=== PATIENT | male | born 1970 | race African-American/Black ===

== ENCOUNTER 2024-06-18 13:16 | Outpatient (AMB) | payer OTHER, SELFPAY ==
--- NOTE | 2024-06-18 13:17 | MHC.PC.OV ---
Vital Signs 06/18/24 13:18 Height 6 ft 1.62 in Weight 205 lb BMI 26.6 BP 134/80 Blood Pressure Location Lt brachial Position Sitting Pulse 94 Pulse Source Pulse Oximeter Pulse Oximetry (%) 97 Oxygen Delivery Method Room Air Intake Visit Reasons: establish care/ PE Allergies No Known Allergies Allergy (Verified 06/18/24 13:34) Medication List - Last Reconciled 06/18/24 by Fanny Bro PA-C No Known Home Meds Tobacco use date assessed: 06/18/24 Dental Screening Dental Screen Date: 06/18/24 Did you have a dental visit in the last 12 months?: No Did you have a dental problem in the last 6 months where you did not have access to dental care?: No HPI establish care/ PE HPI Details 53-year-old male coming to the office for the 1st time. Patient is not known to [employer]. 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 He has not been seen as an adult by a primary care in the past and is not up-to-date on any routine screening or vaccinations. Patient states he has low back pain that began 4 months ago without inciting injury. The pain is midline in the lumbar spine and occasionally will radiate down the left leg without numbness or tingling. He has not had any imaging and he uses Tylenol as needed which sometimes works with the pain. [facility] Family History (Updated 06/18/24 @ 13:26 by LISA Fernandez) Father No problems noted. Mother No problems noted. Social History Housing: House Patient Tobacco Use Status: Never used Tobacco service: No Current occupational status: employed Cognitive needs: No Hearing needs: No Questionnaire PHQ-9 Over the last 2 weeks, how often have you been bothered by any of the following problems? 1. Little interest or pleasure in doing things: not at all 2. Feeling down, depressed, or hopeless: more than half the days 3. Trouble falling or staying asleep, or sleeping too much: not at all 4. Feeling tired or having little energy: nearly every day 5. Poor appetite or overeating: more than half the days 6. Feeling bad about yourself - or that you are a failure or have let yourself or your family down: several days 7. Trouble concentrating on things, such as reading the newspaper or watching television: not at all 8. Moving or speaking so slowly that other people could have noticed. Or the opposite - being so fidgety or restless that you have been moving around a lot more than usual: not at all 9. Thoughts that you would be better off or of hurting yourself in some way: not at all Total score: 8 Depression Screening Interpretation: Negative Depression Screening Done: Yes 97779 - PHQ-9 Billing: Yes Source: Developed by Drs. Cristofer Horn, Roro Chen, Elkin Leone and colleagues, with an educational emma from [employer] Thrive Questionnaire Date Thrive assessed: 06/18/24 I am a: Patient What is your living situation today?: I have a steady place to live Within the past 12 months, did the food you bought not last and you didn't have the money to get more?: Never true Within the past 12 months, did you worry whether your food would run out before you got money to buy more?: Never true Do you have trouble paying for medicines?: No Do you have trouble getting transportation to medical appointments?: No Do you have trouble paying your heating and electricity bill?: No Do you have trouble taking care of your child, family member or friend?: No Do you have trouble with day-to-day activities such as bathing, preparing meals, shopping, managing finances, etc.?: No Are you currently unemployed and looking for a job?: No Are you interested in more education?: No Please select the resources that you would like help with: None Currently or been in a relationship where the following occur: No concerns reported THRIVE Score: 0 AUDIT C Alcohol Use Questionnaire (AUDIT-C) 1. How often do you have a drink containing alcohol?: Never 3. How often do you have six or more drinks on one occasion?: Never Total Score: 0 KASSANDRA-7 AMB Questionnaire KASSANDRA-7 Date KASSANDRA - 7 assessed: 06/18/24 Feeling nervous, anxious, or on edge: 0 = Not at all Not being able to stop or control worryin = Not at all Worrying too much about different things: 0 = Not at all Trouble relaxin = Not at all Being so restless that it is hard to sit still: 0 = Not at all Becoming easily annoyed or irritable: 0 = Not at all Feeling afraid as if something awful might happen: 0 = Not at all Total KASSANDRA-7 score (0-4 normal; 5-9 mild; 10-14 moderate; 15-21 severe): 0 Source: Developed by Drs. Cristofer Horn, Roro Chen, Elkin Leone and colleagues, with an educational emma from [employer] KASSANDRA-7 Assessment Billing KASSANDRA-7 Assessment Tool: KASSANDRA-7 Assessment 19613 Review of Systems Const Denies body aches, Denies fatigue, Denies fever(s), Denies frequent falls, Denies headache(s) and Denies weakness Eyes Reports no additional complaints and Denies change in vision ENT Denies dysphagia, Denies dizziness, Denies facial pain, Denies headache(s), Denies nasal congestion and Denies odynophagia Card Denies chest pain, Denies syncope, Denies irregular heart rhythm, Denies leg edema, Denies lightheadedness and Denies dyspnea Resp Denies cough and Denies dyspnea GI Denies constipation, Denies dysphagia, Denies dyspepsia, Denies diarrhea, Denies nausea, Denies odynophagia and Denies vomiting Denies dysuria, Denies urinary frequency, Denies urinary hesitancy and Denies urinary urgency Musc Reports back pain and Denies myalgias Skin/Breast Reports system reviewed and no additional complaints, except as documented Neuro Denies dizziness, Denies syncope, Denies frequent falls, Denies headache(s) and Denies weakness Psych Reports no additional complaints Endo Denies fatigue Physical exam (Primary Care) Vital Signs: Last Vital Signs Pulse 94 06/18/24 13:18 BP 134/80 06/18/24 13:18 Pulse Ox 97 06/18/24 13:18 Oxygen Delivery Method Room Air 06/18/24 13:18 BMI result Body Mass Index 26.6 Tobacco/Smoking Status: Tobacco use Status Tobacco use date assessed 06/18/24 06/18/24 13:28 Patient Tobacco Use Status Never used Tobacco 06/18/24 13:28 PHQ-9: PHQ-9 Score PHQ-9: Total score 8 06/18/24 13:33 Depression Screening Interpretation: Negative Thrive Assessment: Date of Thrive Assessment Date Thrive assessed 06/18/24 06/18/24 13:28 Currently or been in a relationship where the following occur: No concerns reported Const General: cooperative, healthy appearing, comfortable and no acute distress Orientation/consciousness: patient oriented x3 HENMT Head: Yes normocephalic Ears: hearing grossly normal bilaterally, external ears normal, TM's normal bilaterally and EAC's normal General nose exam: Normal external nose present Face and sinus: Yes normal facial exam and Yes sinuses nontender Mouth: Normal oral and palatal mucosa present and tongue normal Throat: Yes posterior oropharynx normal Eyes General: appearance normal, both eyes and all related structures Conjunctivae: conjunctivae normal Pupils: Equal, round and reactive pupils present EOM: EOMs intact bilaterally and No Nystagmus present Neck Neck: Yes normal visual inspection, Yes full ROM and Yes no lymphadenopathy Chest Chest palpation & inspection: normal inspection of the chest Resp Effort & Inspection: normal respiratory effort Auscultation: clear to auscultation bilaterally, no crackles, no rales, no rhonchi, no wheezes and breath sounds present Cardio Rate: regular rate Rhythm: regular rhythm Peripheral pulses: radial pulses present and dorsalis pedis present GI Inspection: Yes normal to inspection and No Abdominal wall edema Palpation (GI): Soft to palpation, not firm and nontender Auscultation: normal bowel sounds Rectal Exam - Male: Yes deferred General: Yes no CVA tenderness Back/Spine/Pelvis Other: Tenderness to palpation of the lumbar spine without paraspinal muscle tenderness. Negative straight leg raise bilaterally Back: no CVA tenderness Skin General skin exam: no rashes or lesions noted Neuro General: patient oriented x3 Cranial nerves: Yes Equal, round and reactive pupils present, Yes Midline tongue present, Yes Ability to bilaterally elevate shoulders present and No Nystagmus present Gait exam (Neuro): Normal gait present Extrem General: Yes normal to inspection, Yes full ROM, No no pedal edema and No edema Psych Speech and movement: Normal speech and movement present Affect: normal affect Insight: Good insight present (Psych) Judgement: Good judgement present (Psych) Coding Level of Care Code New Pt Prev Care 40-64y(69545) Diagnoses Low back pain M54.50 Annual physical exam Z00.00 Additional Codes KASSANDRA-7 Assessment Billing - KASSANDRA-7 Assessment Tool: KASSANDRA-7 Assessment 71497 ([id number]) Assessment & Plan Assessment & Plan (1) Low back pain: Code(s): M54.50 - Low back pain, unspecified Category: Medical Plan: Patient complaining of lumbar spine pain that radiates to the left leg occasionally without numbness or tingling. Negative straight leg raise test on exam today but does have tenderness to palpation of the lumbar spine. Lumbar spine x-ray ordered. Declines physical therapy at this time. May use Tylenol and ibuprofen as needed for pain. (2) Annual physical exam: Code(s): Z00.00 - Encounter for general adult medical examination without abnormal findings Category: Medical Plan: Patient has not been seen by primary care and is not up-to-date on routine screenings and vaccinations for his age. Referral was placed to GI for routine screening colonoscopies and updated blood work was ordered. Discussed vaccination is patient is unsure of his vaccination records and will let us know about the tetanus vaccine. Discussed if patient would like flu, COVID, tetanus we could accommodate him in his office or he could go to the pharmacy for COVID and flu. Follow up on a yearly basis or sooner pending blood work/x-ray results or if new problems arise Plan This note was constructed using voice recognition software. While every effort has been made to ensure accuracy and retail interior designer, still areas may have been included sometimes these areas may affect the content or meeting of the given symptoms. Total time spent caring for the patient today was 30 minutes. This includes time spent before the visit reviewing the chart, time spent during the visit, and time spent after the visit and documentation. Orders: Orders Free T4 (Free Thyroxine) Today Z00.00 - Encounter for general adult medical examination without abnormal findings TSH reflex Free T4 Today Z00.00 - Encounter for general adult medical examination without abnormal findings Hemoglobin A1c Today Z00.00 - Encounter for general adult medical examination without abnormal findings Vitamin B12 and Folate Today Z00.00 - Encounter for general adult medical examination without abnormal findings XR lumbar spine 2-3V Today M54.50 - Low back pain, unspecified Comprehensive Met. Panel Today Z00.00 - Encounter for general adult medical examination without abnormal findings Complete Blood Count Auto Diff Today Z00.00 - Encounter for general adult medical examination without abnormal findings Lipid Panel Today Z00.00 - Encounter for general adult medical examination without abnormal findings Vitamin D 25-OH (D2 and D3) Today Z00.00 - Encounter for general adult medical examination without abnormal findings Referrals Gastroenterology Referral Z12.11 - Encounter for screening for malignant neoplasm of colon
[2024-06-18 13:18] VITALS: BP 134/80; PULSE 94; O2SAT 97; BMI 26.6
== END 2024-06-18 13:50 | disposition home or self-care (01) ==
DX: M54.50 Low back pain, unspecified (principal); Z00.00 Encounter for general adult medical examination without abnormal findings

== ENCOUNTER 2024-09-18 09:04 | Outpatient (AMB) | payer OTHER, SELFPAY ==
--- NOTE | 2024-09-18 09:10 | MHC.PC.OV ---
Vital Signs 09/18/24 09:12 09/18/24 09:31 Height 6 ft 1.62 in Weight 207 lb 2 oz BMI 26.9 BP 140/90 H 142/88 H Blood Pressure Location Lt brachial Lt brachial Position Sitting Sitting Pulse 99 Pulse Source Pulse Oximeter Temp 97.5 F Temp Source Skin Pulse Oximetry (%) 99 Oxygen Delivery Method Room Air Intake Visit Reasons: 3 Month f/u Intake Note: Patient is here to follow up on lower back pain. Print Graphic Designer Required: No Mechanical Equipment Test Engineer: Not Required per policy Accompanied by: Self / Same As Patient Allergies No Known Allergies Allergy (Verified 09/18/24 09:12) Medication List - Last Reconciled 09/18/24 by Fanny Bro PA-C No Known Home Meds Tobacco use date assessed: 09/18/24 Dental Screening Dental Screen Date: 09/18/24 Did you have a dental visit in the last 12 months?: No Did you have a dental problem in the last 6 months where you did not have access to dental care?: No Was dental information given to patient?: No HPI 3 Month f/u HPI Details 53-year-old male with past medical history of diabetes mellitus, elevated LFTs last seen 06/2024 coming in for follow up. Patient tells us he is feeling generally well and has no acute concerns today. He states his diet has lots of rice based dishes. He exercises regularly. [facility] Surgical History No pertinent past surgical history Family History Father No problems noted. Mother No problems noted. Social History Housing: House Alcohol intake: never Patient Tobacco Use Status: Never used Tobacco e-Cigarette/Vaping Use: Never Used Second Hand Smoke Exposure: No service: No Current occupational status: employed Cognitive needs: No Hearing needs: No Questionnaire PHQ-9 Over the last 2 weeks, how often have you been bothered by any of the following problems? 1. Little interest or pleasure in doing things: not at all 2. Feeling down, depressed, or hopeless: not at all 3. Trouble falling or staying asleep, or sleeping too much: not at all 4. Feeling tired or having little energy: not at all 5. Poor appetite or overeating: not at all 6. Feeling bad about yourself - or that you are a failure or have let yourself or your family down: not at all 7. Trouble concentrating on things, such as reading the newspaper or watching television: not at all 8. Moving or speaking so slowly that other people could have noticed. Or the opposite - being so fidgety or restless that you have been moving around a lot more than usual: not at all 9. Thoughts that you would be better off or of hurting yourself in some way: not at all Total score: 0 Depression Screening Interpretation: Negative Depression Screening Done: Yes Source: Developed by Drs. Cristofer Horn, Roro Chen, Elkin Leone and colleagues, with an educational emam from [employer]. Thrive Questionnaire Date Thrive assessed: 09/18/24 I am a: Patient What is your living situation today?: I have a steady place to live Within the past 12 months, did the food you bought not last and you didn't have the money to get more?: I choose not to answer this question Within the past 12 months, did you worry whether your food would run out before you got money to buy more?: Never true Do you have trouble paying for medicines?: I choose not to answer this question Do you have trouble getting transportation to medical appointments?: No Do you have trouble paying your heating and electricity bill?: No Do you have trouble taking care of your child, family member or friend?: No Do you have trouble with day-to-day activities such as bathing, preparing meals, shopping, managing finances, etc.?: No Are you currently unemployed and looking for a job?: No Are you interested in more education?: Yes Please select the resources that you would like help with: Job search/training Currently or been in a relationship where the following occur: I choose not to answer THRIVE Score: 0 AUDIT C Alcohol Use Questionnaire (AUDIT-C) 1. How often do you have a drink containing alcohol?: Monthly or less 2. How many drinks containing alcohol do you have on a typical day when you are drinking?: 1 or 2 3. How often do you have six or more drinks on one occasion?: Monthly Total Score: 3 KASSANDRA-7 AMB Questionnaire KASSANDRA-7 Date KASSANDRA - 7 assessed: 09/18/24 Feeling nervous, anxious, or on edge: 0 = Not at all Not being able to stop or control worryin = Not at all Worrying too much about different things: 0 = Not at all Trouble relaxin = Not at all Being so restless that it is hard to sit still: 0 = Not at all Becoming easily annoyed or irritable: 0 = Not at all Feeling afraid as if something awful might happen: 0 = Not at all Total KASSANDRA-7 score (0-4 normal; 5-9 mild; 10-14 moderate; 15-21 severe): 0 Source: Developed by Drs. Cristofer Horn, Roro Chen, Elkin Leone and colleagues, with an educational emma from [employer]. Review of Systems Const Denies body aches, Denies chills, Denies fever(s), Denies headache(s) and Denies poor appetite Eyes Reports no additional complaints ENT Denies dysphagia, Denies dizziness, Denies headache(s) and Denies odynophagia Card Denies chest pain, Denies syncope, Denies edema, Denies irregular heart rhythm, Denies lightheadedness and Denies dyspnea Resp Denies cough and Denies dyspnea GI Denies abdominal pain, Denies constipation, Denies dysphagia, Denies diarrhea, Denies nausea, Denies odynophagia and Denies vomiting Reports no additional complaints Musc Reports no additional complaints and Denies abnormal gait Skin/Breast Reports system reviewed and no additional complaints, except as documented Neuro Denies abnormal gait, Denies dizziness, Denies syncope and Denies headache(s) Psych Reports no additional complaints Physical exam (Primary Care) Vital Signs: Last Vital Signs Temp 97.5 F 09/18/24 09:12 Pulse 99 09/18/24 09:12 BP 142/88 H 09/18/24 09:31 Pulse Ox 99 09/18/24 09:12 Oxygen Delivery Method Room Air 09/18/24 09:12 BMI result Body Mass Index 26.9 Tobacco/Smoking Status: Tobacco use Status Tobacco use date assessed 09/18/24 09/18/24 09:17 Patient Tobacco Use Status Never used Tobacco 09/18/24 09:12 e-Cigarette/Vaping Use Never Used 09/18/24 09:17 PHQ-9: PHQ-9 Score PHQ-9: Total score 0 09/18/24 09:29 Depression Screening Interpretation: Negative Thrive Assessment: Date of Thrive Assessment Date Thrive assessed 09/18/24 09/18/24 09:12 Currently or been in a relationship where the following occur: I choose not to answer Const General: cooperative, healthy appearing, comfortable and no acute distress Orientation/consciousness: patient oriented x3 HENMT Head: Yes normocephalic Ears: hearing grossly normal bilaterally General nose exam: Normal external nose present Eyes General: appearance normal, both eyes and all related structures Conjunctivae: conjunctivae normal Neck Neck: Yes full ROM and Yes no lymphadenopathy Resp Effort & Inspection: normal respiratory effort Auscultation: clear to auscultation bilaterally, no crackles, no rales, no rhonchi and no wheezes Cardio Rate: regular rate Rhythm: regular rhythm Skin General skin exam: no rashes or lesions noted Neuro General: patient oriented x3 Gait exam (Neuro): Normal gait present Extrem General: Yes normal to inspection, Yes full ROM and No edema Psych Affect: normal affect Attitude: cooperative Insight: Good insight present (Psych) Judgement: Good judgement present (Psych) Results AMB Hemoglobin A1c AMB Hemoglobin A1c 6.5 % Last Edit by LISA Mckinnon on 09/18/24 09:37 Coding Level of Care Code Est Pt Level 4 (40103) Diagnoses Elevated LFTs R79.89 Type 2 diabetes mellitus with other specified complication, without long-term current use of insulin E11.69 Diabetes mellitus type: type 2 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 Ordered for repeat lab work along with hepatitis panel. If continues to be elevated we will plan to order abdominal ultrasound. Eyes my eye (2) Diabetes mellitus: Code(s): E11.9 - Type 2 diabetes mellitus without complications Category: Medical Qualifiers: Diabetes mellitus type: type 2 Diabetes mellitus chcf insulin use: without chcf use Diabetes mellitus complication status: with other specified complication Qualified Code(s): E11.69 - Type 2 diabetes mellitus with other specified complication Plan: Decrease the amount of carbohydrates such as pasta, bread, rice, and potatoes and limit the amount of sweets. Although fruits are generally healthy they should be eaten in moderation as they are still high in sugar. Hemoglobin A1c goal of less than 7%. Patient has new diagnosis of diabetes mellitus with A1c of 6.5% today in the office. Patient would like to try diet and lifestyle modification before starting medical management. We will follow up in 3 months for repeat A1c advised patient if A1c remains elevated we will require medical management. (3) Low back pain: Code(s): M54.50 - Low back pain, unspecified Category: Medical Plan: Patient states his back pain has been improving. He notices his pain is worse after working long shifts standing on his feet for long periods of time. Advised patient to trial insoles or other supportive shoes and continue to use Tylenol and ibuprofen as needed for pain management (4) Elevated blood pressure reading without diagnosis of hypertension: Code(s): R03.0 - Elevated blood-pressure reading, without diagnosis of hypertension Category: Medical Plan: Blood pressure elevated today on exam 142/88 blood pressure in the past has been normal. Patient tells us today he has been rushing around all day which is why his blood pressure is elevated. Advised patient to take blood pressure at home and follow up at next visit. Avoid salt intake and encourage healthy diet and regular exercise. Plan This note was constructed using voice recognition software. While every effort has been made to ensure accuracy and assistant to the director, still areas may have been included sometimes these areas may affect the content or meeting of the given symptoms. Total time spent caring for the patient today was 20 minutes. This includes time spent before the visit reviewing the chart, time spent during the visit, and time spent after the visit and documentation. Orders: Orders Liver Panel Today R79.89 - Other specified abnormal findings of blood chemistry Hepatitis B,C Profile Today R79.89 - Other specified abnormal findings of blood chemistry AMB Hemoglobin A1c Today E11.9 - Type 2 diabetes mellitus without complications
[2024-09-18 09:12] VITALS: BP 140/90; PULSE 99; TEMP 36.4; O2SAT 99; BMI 26.9
[2024-09-18 09:31] VITALS: BP 142/88
== END 2024-09-18 09:41 | disposition home or self-care (01) ==
DX: R79.89 Other specified abnormal findings of blood chemistry (principal); E11.69 Type 2 diabetes mellitus with other specified complication; M54.50 Low back pain, unspecified; R03.0 Elevated blood-pressure reading, without diagnosis of hypertension; E11.9 Type 2 diabetes mellitus without complications

== ENCOUNTER → 2024-09-18 09:04 | Outpatient (BNVA) | payer OTHER, SELFPAY | DX: M54.50 Low back pain, unspecified (principal); R79.89 Other specified abnormal findings of blood chemistry; E11.69 Type 2 diabetes mellitus with other specified complication; R03.0 Elevated blood-pressure reading, without diagnosis of hypertension | CPT/HCPCS: 83036; 99212 ==

== ENCOUNTER 2024-12-17 09:25 | Outpatient (AMB) | payer OTHER, SELFPAY ==
--- NOTE | 2024-12-17 09:32 | MHC.PC.OV ---
Vital Signs 12/17/24 09:33 12/17/24 10:02 Height 6 ft 1.2 in Weight 207 lb BMI 27.2 BP 140/90 H 134/88 Blood Pressure Location Lt brachial Lt brachial Position Sitting Sitting Pulse 77 Pulse Source Pulse Oximeter Temp 97.5 F Temp Source Temporal Artery Scan Pulse Oximetry (%) 97 Oxygen Delivery Method Room Air Intake Visit Reasons: f/u DM and BP Intake Note: Patient is here to follow up on DM, BP. 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 At his last visit A1c was 6.5% agreed to work on dietary and lifestyle modification. Patient tells us today he has been feeling generally well. He does work over nights 6 days a week and is having difficulty with his sleep schedule. As a result he feels excessive fatigue throughout the day. He typically will sleep anywhere between 3-5 hours per day. [facility] Surgical History No pertinent past surgical history Family History Father No problems noted. Mother No problems noted. Social History Housing: House Alcohol intake: never Patient Tobacco Use Status: Never used Tobacco e-Cigarette/Vaping Use: Never Used Second Hand Smoke Exposure: No service: No Current occupational status: employed Cognitive needs: No Hearing needs: No Questionnaire Thrive Questionnaire Date Thrive assessed: 09/18/24 KASSANDRA-7 AMB Questionnaire KASSANDRA-7 Date KASSANDRA - 7 assessed: 09/18/24 Source: Developed by Drs. Cristofer Horn, Roro Chen, Elkin Leone and colleagues, with an educational emma from [employer]. Review of Systems Const Denies body aches, Denies chills, Denies fever(s), Denies headache(s) and Denies poor appetite Eyes Reports no additional complaints ENT Denies dysphagia, Denies dizziness, Denies headache(s) and Denies odynophagia Card Denies chest pain, Denies syncope, Denies edema, Denies irregular heart rhythm, Denies lightheadedness and Denies dyspnea Resp Denies cough and Denies dyspnea GI Denies abdominal pain, Denies constipation, Denies dysphagia, Denies diarrhea, Denies nausea, Denies odynophagia and Denies vomiting Reports no additional complaints Musc Reports no additional complaints and Denies abnormal gait Skin/Breast Reports system reviewed and no additional complaints, except as documented Neuro Denies abnormal gait, Denies dizziness, Denies syncope and Denies headache(s) Psych Reports no additional complaints Physical exam (Primary Care) Vital Signs: Last Vital Signs Temp 97.5 F 12/17/24 09:33 Pulse 77 12/17/24 09:33 BP 140/90 H 12/17/24 09:33 Pulse Ox 97 12/17/24 09:33 Oxygen Delivery Method Room Air 12/17/24 09:33 BMI result Body Mass Index 27.2 Tobacco/Smoking Status: Tobacco use Status Tobacco use date assessed 12/17/24 12/17/24 09:38 Patient Tobacco Use Status Never used Tobacco 12/17/24 09:38 e-Cigarette/Vaping Use Never Used 12/17/24 09:38 Thrive Assessment: Date of Thrive Assessment Date Thrive assessed 09/18/24 12/17/24 09:38 Const General: cooperative, healthy appearing, comfortable and no acute distress Orientation/consciousness: patient oriented x3 [facility] Head: Yes normocephalic Ears: hearing grossly normal bilaterally General nose exam: Normal external nose present Eyes General: appearance normal, both eyes and all related structures Conjunctivae: conjunctivae normal Neck Neck: Yes full ROM and Yes no lymphadenopathy Resp Effort & Inspection: normal respiratory effort Auscultation: clear to auscultation bilaterally, no crackles, no rales, no rhonchi and no wheezes Cardio Rate: regular rate Rhythm: regular rhythm Skin General skin exam: no rashes or lesions noted Neuro General: patient oriented x3 Gait exam (Neuro): Normal gait present Extrem General: Yes normal to inspection, Yes full ROM and No edema Psych Affect: normal affect Attitude: cooperative Insight: Good insight present (Psych) Judgement: Good judgement present (Psych) Results AMB Hemoglobin A1c AMB Hemoglobin A1c 6.0 % Last Edit by LISA Mckinnon on 12/17/24 09:45 Coding Level of Care Code Est Pt Level 3 (58784) Diagnoses Elevated blood pressure reading without diagnosis of hypertension R03.0 Type 2 diabetes mellitus with other specified complication, without long-term current use of insulin E11.69 Diabetes mellitus type: type 2 Diabetes mellitus jail insulin use: without manager placement use Diabetes mellitus complication status: with other specified complication Insomnia G47.00 Assessment & Plan Assessment & Plan (1) Elevated blood pressure reading without diagnosis of hypertension: Code(s): R03.0 - Elevated blood-pressure reading, without diagnosis of hypertension Category: Medical Plan: Blood pressure mildly elevated on exam again today. Patient does endorse high salt diet. Recommend following up with nurse navigation in 3 weeks for blood pressure check and education and follow up with me in 3 months. If blood pressure remains elevated discussed the need for medication management. Avoid salt intake and encourage healthy diet and regular exercise. (2) Diabetes mellitus: Code(s): E11.9 - Type 2 diabetes mellitus without complications Category: Medical Qualifiers: Diabetes mellitus type: type 2 Diabetes mellitus manager placement insulin use: without jail use Diabetes mellitus complication status: with other specified complication Qualified Code(s): E11.69 - Type 2 diabetes mellitus with other specified complication Plan: Decrease the amount of carbohydrates such as pasta, bread, rice, and potatoes and limit the amount of sweets. Although fruits are generally healthy they should be eaten in moderation as they are still high in sugar. Hemoglobin A1c goal of less than 7%. A1c 6.0% today at this time no need for medical management as patient has been able to manage the diabetes with dietary intervention. (3) Insomnia: Code(s): G47.00 - Insomnia, unspecified Category: Medical Plan: Discussed with patient today sleep hygiene and gave recommendations as far as lifestyle interventions. May use [id number] melatonin and/or magnesium for sleep as well. Discussed with the patient the hypersomnolence is likely due to his lack of sleep. He denies any shortness of breath, choking episodes or snoring. Can consider sleep study Plan This note was constructed using voice recognition software. While every effort has been made to ensure accuracy and cage supervisor, still areas may have been included sometimes these areas may affect the content or meeting of the given symptoms. Total time spent caring for the patient today was 20 minutes. This includes time spent before the visit reviewing the chart, time spent during the visit, and time spent after the visit and documentation. Orders: Orders AMB Hemoglobin A1c Today E11.69 - Type 2 diabetes mellitus with other specified complication
[2024-12-17 09:33] VITALS: BP 140/90; PULSE 77; TEMP 36.4; O2SAT 97; BMI 27.2
[2024-12-17 10:02] VITALS: BP 134/88
--- OUTSIDE RECORDS SUMMARY | 2024-12-17 10:28 | XMS_ITS ---
Author Organization [facility] Address [address], [place] [id number] Care Team Providers Care Locksmith Helper Name Role Phone No, PCP [facility], Nursing Unavailable [phone] REASON FOR VISIT phone: intake Encounters Encounter Location Date Provider Diagnosis [facility] [address], [place] [id number] 06/14/2024 Nursing [facility] Plan Of Treatment No Information Progress Notes * MARSHA TOVARDOB:[birth year] (54 yo M)Acc No.[id number]:06/14/2024 Progress Notes Patient:?MARSHA TOVAR Provider:?Provider [facility] :1970???Age:53 Y???Sex:Male Jose e:06/14/2024 Address:[address] [place] [address] [id number] Pcp:PCP No Subjective: * Chief Complaints: * ???1. Phone: intake. * Medical History:? Objective: * Vitals:? Assessment: Plan: * Treatment: * Images: Billing Information: * Visit Code:? * Procedure Codes:? * Electronic signature of [facility] on 12/17/2024 at 10:28 AM EDT Sign off status: Pending * Provider:?Provider [facility] Date:?06/14/2024 Generated for Roni colón/[place]/eTransmitting on:?12/17/2024 10:28 AM EDT
--- OUTSIDE RECORDS SUMMARY | 2024-12-17 10:28 | XMS_ITS | Patient Health Record ---
Author Organization [facility] Address [address], [place] [id number] Care Team Providers Care Shot Lighter Name Role Phone No, PCP [facility], Nursing Unavailable [phone] Reason For Referral No Information Plan Of Treatment No Information Insurance Providers Payer Name Payer Address Payer Phone Subscriber Number Group Number Insured Name Patient Relationship to Insured Coverage Start Date Coverage End Date [place] [address] [place], [place] [id number] MARSHA HOLMAN Self - patient is the insured 4
== END 2024-12-17 10:08 | disposition home or self-care (01) ==
DX: R03.0 Elevated blood-pressure reading, without diagnosis of hypertension (principal); E11.69 Type 2 diabetes mellitus with other specified complication; G47.00 Insomnia, unspecified

== ENCOUNTER → 2024-12-17 09:25 | Outpatient (BNVA) | payer OTHER, SELFPAY | DX: R03.0 Elevated blood-pressure reading, without diagnosis of hypertension (principal); E11.69 Type 2 diabetes mellitus with other specified complication; G47.00 Insomnia, unspecified | CPT/HCPCS: 83036; 99212 ==

== ENCOUNTER 2025-03-25 08:49 | Outpatient (AMB) | payer OTHER, SELFPAY ==
--- OUTSIDE RECORDS SUMMARY | 2024-03-29 09:00 | XMS_ITS ---
Author Organization [facility] Address [address] [place] [id number] Care Team Providers Care Tool Chaser Name Role Phone NO, PCP Primary Care Provider [facility], Nursing Unavailable [phone] REASON FOR VISIT phone: Intake Encounters Encounter Location Date Provider Diagnosis [address] [id number] 03/29/2024 Nursing [facility] Plan Of Treatment No Information Progress Notes * MARSHA TOVARDOB:[birth year] (54 yo M)Acc No.[id number]:03/29/2024 Progress Notes Patient: MARSHA DE JESUS Provider: Adelso levy [facility] :1970 A ge:53 Y S ex:Male Date:03/29/2024 Address:[address] [place], [place] [phone] Pcp:PCP NO Subjective: * Chief Complaints: * 1 . phone: Intake. * Medical History: Objective: * Vitals: Assessment: Plan: * Treatment: * Images: Billing Information: * Visit Code: * Procedure Codes: * Electronic signature of Huber [facility] on 03/25/2025 at 09:09 AM EDT Sign off status: Pending * Provider: Adelso levy [facility] Date: 03/29/2024 Generated for Roni colón/Milton/Spencer on: 03/25/2025 09:09 AM EDT
--- NOTE | 2025-03-25 08:53 | MHC.PC.OV ---
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 Accompanied by: Self / Same As Patient Allergies No Known Allergies Allergy (Verified 03/25/25 09:00) Medication List - Last Reconciled 03/25/25 by Fanny Bro PA-C No Known Home Meds Tobacco use date assessed: 03/25/25 Dental Screening Dental Screen Date: 03/25/25 Did you have a dental visit in the last 12 months?: No Did you have a dental problem in the last 6 months where you did not have access to dental care?: No Was dental information given to patient?: No HPI f/u DM and HTN HPI Details 54-year-old male with past medical history of diabetes mellitus, elevated LFTs last seen 12/2024 coming in for follow up.? At his last visit, A1c 6.0% with dietary modification.? He completed blood pressure check with nursing navigation 01/09/2025 blood pressure in the office at that time was 130/82. Presenting with back pain and elevated blood pressure. Back pain is chronic and worsens with occupational activities that require bending and lifting. The patient works at [employer], where job duties often necessitate crouching or hunching, contributing to the pain. Pain management includes the use of Tylenol as needed. Blood pressure was elevated at 160/98 mmHg during the visit, possibly influenced by recent dietary choices. Hemoglobin A1c has increased from 6.0% to 6.4%, suggesting a need for monitoring and dietary adjustments. [facility] Surgical History No pertinent past surgical history Family History Father No problems noted. Mother No problems noted. Social History Housing: House Alcohol intake: never Patient Tobacco Use Status: Never used Tobacco e-Cigarette/Vaping Use: Never Used Second Hand Smoke Exposure: No service: No Current occupational status: employed Cognitive needs: No Hearing needs: No Questionnaire PHQ-9 Over the last 2 weeks, how often have you been bothered by any of the following problems? 1. Little interest or pleasure in doing things: not at all 2. Feeling down, depressed, or hopeless: not at all 3. Trouble falling or staying asleep, or sleeping too much: not at all 4. Feeling tired or having little energy: not at all 5. Poor appetite or overeating: not at all 6. Feeling bad about yourself - or that you are a failure or have let yourself or your family down: not at all 7. Trouble concentrating on things, such as reading the newspaper or watching television: not at all 8. Moving or speaking so slowly that other people could have noticed. Or the opposite - being so fidgety or restless that you have been moving around a lot more than usual: not at all 9. Thoughts that you would be better off or of hurting yourself in some way: not at all Total score: 0 Depression Screening Interpretation: Negative Depression Screening Done: Yes Source: Developed by Drs. Cristofer Horn, Roro Chen, Elkin Leone and colleagues, with an educational emma from [employer]. Thrive Questionnaire Date Thrive assessed: 03/25/25 KASSANDRA-7 AMB Questionnaire KASSANDRA-7 Date KASSANDRA - 7 assessed: 03/25/25 Source: Developed by Drs. Cristofer Horn, Roro Chen, Elkin Leone and colleagues, with an educational emma from [employer]. Review of Systems Const Denies body aches, Denies chills, Denies fever(s) and Denies poor appetite Eyes Reports no additional complaints ENT Denies dizziness Card Denies chest pain and Denies dyspnea Resp Denies cough and Denies dyspnea GI Denies abdominal pain, Denies nausea and Denies vomiting Reports no additional complaints Musc Reports as per HPI, Denies abnormal gait and Reports back pain Skin/Breast Reports system reviewed and no additional complaints, except as documented Neuro Denies abnormal gait and Denies dizziness Psych Reports no additional complaints Physical exam (Primary Care) Vital Signs: Last Vital Signs Pulse 78 03/25/25 08:54 BP 156/90 H 03/25/25 08:54 Pulse Ox 99 03/25/25 08:54 Oxygen Delivery Method Room Air 03/25/25 08:54 BMI result Body Mass Index 27.0 Tobacco/Smoking Status: Tobacco use Status Tobacco use date assessed 03/25/25 03/25/25 08:59 Patient Tobacco Use Status Never used Tobacco 03/25/25 08:59 e-Cigarette/Vaping Use Never Used 03/25/25 08:59 PHQ-9: PHQ-9 Score PHQ-9: Total score 0 03/25/25 09:14 Depression Screening Interpretation: Negative Thrive Assessment: Date of Thrive Assessment Date Thrive assessed 03/25/25 03/25/25 08:59 Const General: cooperative, healthy appearing, comfortable and no acute distress Orientation/consciousness: patient oriented x3 HENMT Head: Yes normocephalic Ears: hearing grossly normal bilaterally General nose exam: Normal external nose present Eyes General: appearance normal, both eyes and all related structures Conjunctivae: conjunctivae normal Neck Neck: Yes full ROM and Yes no lymphadenopathy Resp Effort & Inspection: normal respiratory effort Auscultation: clear to auscultation bilaterally, no crackles, no rales, no rhonchi and no wheezes Cardio Rate: regular rate Rhythm: regular rhythm Back/Spine/Pelvis Other: No pain to palpation over entirety of spine or paraspinal muscles. - SLR tano Skin General skin exam: no rashes or lesions noted Neuro General: patient oriented x3 Gait exam (Neuro): Normal gait present Extrem General: Yes normal to inspection, Yes full ROM and No edema Psych Affect: normal affect Attitude: cooperative Insight: Good insight present (Psych) Judgement: Good judgement present (Psych) Results AMB Hemoglobin A1c AMB Hemoglobin A1c 6.4 % Last Edit by LISA Stock on 03/25/25 09:14 Results Reviewed Results Reviewed: Laboratory Last Values Hgb A1c (Clinic) 6.4 % (4.0-6.0) H 03/25/25 09:08 Coding Level of Care Code Est Pt Level 3 (97874) Diagnoses Elevated blood pressure reading without diagnosis of hypertension R03.0 Type 2 diabetes mellitus with other specified complication, without long-term current use of insulin E11.69 Diabetes mellitus complication status: with other specified complication 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 He was recently seen by nursing navigation and had a blood pressure of 130/82. He does endorse high salt breakfast which may be contributing to his blood pressure today. Given the fluctuance of blood pressures recommend patient monitoring blood pressure at home and prescription was sent for blood pressure monitor kit today. Advised patient to take blood pressure daily and keep a log and to bring to the next visit. 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 Although fruits are generally healthy they should be eaten in moderation as they are still high in sugar. Hemoglobin A1c goal of less than 7%. A1c 6.4% today at this time no need for medical management as patient has been able to manage the diabetes with dietary intervention. (3) Insomnia: Code(s): G47.00 - Insomnia, unspecified Category: Medical Plan: Discussed with patient today sleep hygiene and gave recommendations as far as lifestyle interventions. May use ruzg-[id number] melatonin and/or magnesium for sleep as well. Discussed with the patient the hypersomnolence is likely due to his lack of sleep. He denies any shortness of breath, choking episodes or snoring. Can consider sleep study (4) Low back pain: Code(s): M54.50 - Low back pain, unspecified Category: Medical Plan: Patient complaining of low back pain primarily with prolonged standing, hunching and bending. He is provided a note for work to avoid these activities. May use Tylenol and ibuprofen as needed for pain. Plan A letter will be provided to the patient to avoid work positions that worsen back pain, such as crouching or hunching over low surfaces. The patient will receive a blood pressure cuff from [facility] pharmacy for home monitoring, with instructions to log daily readings. Dietary changes are advised to reduce sodium intake, and follow-up is scheduled to reassess blood pressure and A1c levels. This note was constructed using voice recognition software. While every effort has been made to ensure accuracy and diving instructor, still areas may have been included sometimes these areas may affect the content or meeting of the given symptoms. Total time spent caring for the patient today was 20 minutes. This includes time spent before the visit reviewing the chart, time spent during the visit, and time spent after the visit and documentation. Patient was informed and verbally consented to the use of an ambient scribe for clinic note documentation during this visit. Orders: Orders AMB Hemoglobin A1c Today Z13.9 - Encounter for screening, unspecified Medications: New blood pressure monitor (Blood Pressure Kit) As directed; to check BP daily 1 ea 0RF R03.0 - Elevated blood-pressure reading, without diagnosis of hypertension
[2025-03-25 08:54] VITALS: BP 156/90; PULSE 78; O2SAT 99; BMI 27.0
== END 2025-03-25 09:33 | disposition home or self-care (01) ==
DX: R03.0 Elevated blood-pressure reading, without diagnosis of hypertension (principal); E11.69 Type 2 diabetes mellitus with other specified complication; G47.00 Insomnia, unspecified; M54.50 Low back pain, unspecified; Z13.9 Encounter for screening, unspecified

== ENCOUNTER → 2025-03-25 08:49 | Outpatient (BNVA) | payer OTHER, SELFPAY | DX: I10 Essential (primary) hypertension (principal); E11.9 Type 2 diabetes mellitus without complications; R03.0 Elevated blood-pressure reading, without diagnosis of hypertension; E11.69 Type 2 diabetes mellitus with other specified complication; G47.00 Insomnia, unspecified; M54.50 Low back pain, unspecified | CPT/HCPCS: 83036; 99212 ==

== ENCOUNTER 2025-05-26 09:37 | Outpatient (AMB) | payer OTHER, SELFPAY ==
--- OUTSIDE RECORDS SUMMARY | 2024-03-29 09:00 | XMS_ITS ---
Author Organization [facility] Address [address] [place] [address] Care Team Providers Care Quick Technician Name Role Phone NO, PCP Primary Care Provider [facility], Nursing Unavailable [phone] REASON FOR VISIT phone: Intake Encounters Encounter Location Date Provider Diagnosis [address] [address] 03/29/2024 Nursing [facility] Plan Of Treatment No Information Progress Notes * GUY MARSHADOB:[birth year] (54 yo M)Acc No.[id number]:03/29/2024 Progress Notes Patient: MARSHA DE JESUS Provider: Adelso levy [facility] :1970 A ge:53 Y S ex:Male Date:03/29/2024 Address:[address] [place], [place] [phone] Pcp:PCP NO Subjective: * Chief Complaints: * 1 . phone: Intake. * Medical History: Objective: * Vitals: Assessment: Plan: * Treatment: * Images: Billing Information: * Visit Code: * Procedure Codes: * Electronic signature of Huber [facility] on 05/26/2025 at 11:19 AM EDT Sign off status: Pending * Provider: Adelso levy [facility] Date: 03/29/2024 Generated for Roni colón/Milton/eTkadismitting on: 05/26/2025 11:19 AM EDT
--- OUTSIDE RECORDS SUMMARY | 2024-06-14 10:00 | XMS_ITS ---
Author Organization [facility] Address [address] [place] [address] Care Team Providers Care Radial Saw Operator Name Role Phone NO, PCP Primary Care Provider [facility], Nursing Unavailable [phone] REASON FOR VISIT phone: intake Encounters Encounter Location Date Provider Diagnosis [address] [address] 06/14/2024 Nursing [facility] Plan Of Treatment No Information Progress Notes * GUY MARSHADOB:[birth year] (54 yo M)Acc No.[id number]:06/14/2024 Progress Notes Patient: MARSHA DE JESUS Provider: Adelso levy [facility] :1970 A ge:53 Y S ex:Male Date:06/14/2024 Address:[address] [place], [place] [phone] Pcp:PCP NO Subjective: * Chief Complaints: * 1 . Phone: intake. * Medical History: Objective: * Vitals: Assessment: Plan: * Treatment: * Images: Billing Information: * Visit Code: * Procedure Codes: * Electronic signature of Huber [facility] on 05/26/2025 at 11:19 AM EDT Sign off status: Pending * Provider: Adelso levy [facility] Date: 1 Generated for Roni colón/Milton/eTkadismitting on: 0 05/26/2025 11:19 AM EDT
[2025-05-26 09:17] VITALS: BP 140/80; PULSE 61; TEMP 36.2; O2SAT 99; BMI 26.9
--- NOTE | 2025-05-26 09:17 | MHC.PC.OV ---
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 Accompanied by: Self / Same As Patient Allergies No Known Allergies Allergy (Verified 05/26/25 10:01) Medication List - Last Reconciled 05/26/25 by Fanny Bro PA-C acetaminophen (Tylenol) 325 mg PO DAILY PRN blood pressure monitor (Blood Pressure Kit) As directed; to check BP daily multivitamin 1 tab PO DAILY Tobacco use date assessed: 05/26/25 Dental Screening Dental Screen Date: 05/26/25 Did you have a dental visit in the last 12 months?: No Did you have a dental problem in the last 6 months where you did not have access to dental care?: No HPI f/u HTN HPI Details 54-year-old male with past medical history of diabetes mellitus, elevated LFTs last seen 03/2025 coming in for follow up. Presenting with elevated blood pressure and sleep disturbances. The patient has been monitoring his blood pressure at home, noting readings in the 130s and some in the 90s, which are considered high. He admits to consuming a diet high in salt, which may contribute to elevated readings. The patient sometimes takes blood pressure readings immediately after physical activity, which may affect accuracy. The patient reports waking every one to two hours during the night, resulting in fatigue during the day. He has not tried rkcp-frk-ktxbyhy remedies for sleep but is open to trying medication. [facility] Surgical History No pertinent past surgical history Family History Father No problems noted. Mother No problems noted. Social History Housing: House Alcohol intake: never Patient Tobacco Use Status: Never used Tobacco e-Cigarette/Vaping Use: Never Used Second Hand Smoke Exposure: No service: No Current occupational status: employed Cognitive needs: No Hearing needs: No Vision needs: No Questionnaire PHQ-9 Over the last 2 weeks, how often have you been bothered by any of the following problems? 1. Little interest or pleasure in doing things: not at all 2. Feeling down, depressed, or hopeless: not at all 3. Trouble falling or staying asleep, or sleeping too much: not at all 4. Feeling tired or having little energy: not at all 5. Poor appetite or overeating: not at all 6. Feeling bad about yourself - or that you are a failure or have let yourself or your family down: not at all 7. Trouble concentrating on things, such as reading the newspaper or watching television: not at all 8. Moving or speaking so slowly that other people could have noticed. Or the opposite - being so fidgety or restless that you have been moving around a lot more than usual: not at all 9. Thoughts that you would be better off or of hurting yourself in some way: not at all Total score: 0 Source: Developed by Drs. Cristofer Horn, Roro Chen, Elkin Leone and colleagues, with an educational emma from [employer]. Thrive Questionnaire Date Thrive assessed: 05/26/25 I am a: Patient Within the past 12 months, did the food you bought not last and you didn't have the money to get more?: Never true Within the past 12 months, did you worry whether your food would run out before you got money to buy more?: Never true Do you have trouble paying for medicines?: No Do you have trouble getting transportation to medical appointments?: No Do you have trouble paying your heating and electricity bill?: No Do you have trouble taking care of your child, family member or friend?: No Do you have trouble with day-to-day activities such as bathing, preparing meals, shopping, managing finances, etc.?: No Are you currently unemployed and looking for a job?: No Are you interested in more education?: No THRIVE Score: 0 AUDIT C Alcohol Use Questionnaire (AUDIT-C) 1. How often do you have a drink containing alcohol?: Never 3. How often do you have six or more drinks on one occasion?: Never Total Score: 0 KASSANDRA-7 AMB Questionnaire KASSANDRA-7 Date KASSANDRA - 7 assessed: 05/26/25 Feeling nervous, anxious, or on edge: 0 = Not at all Not being able to stop or control worryin = Not at all Worrying too much about different things: 0 = Not at all Trouble relaxin = Not at all Being so restless that it is hard to sit still: 0 = Not at all Becoming easily annoyed or irritable: 0 = Not at all Feeling afraid as if something awful might happen: 0 = Not at all Total KASSANDRA-7 score (0-4 normal; 5-9 mild; 10-14 moderate; 15-21 severe): 0 Source: Developed by Drs. Cristofer Horn, Roro Chen, Elkin Leone and colleagues, with an educational emma from [employer]. Review of Systems Const Denies body aches, Denies chills, Denies fever(s) and Denies poor appetite Eyes Reports no additional complaints ENT Denies dizziness Card Denies chest pain, Denies edema, Denies lightheadedness and Denies dyspnea Resp Denies dyspnea GI Denies nausea and Denies vomiting Reports no additional complaints Musc Reports as per HPI Neuro Denies dizziness Psych Reports no additional complaints Physical exam (Primary Care) Vital Signs: Last Vital Signs Temp 97.1 F 05/26/25 09:17 Pulse 61 05/26/25 09:17 BP 140/80 H 05/26/25 09:17 Pulse Ox 99 05/26/25 09:17 Oxygen Delivery Method Room Air 05/26/25 09:17 BMI result Body Mass Index 26.9 Tobacco/Smoking Status: Tobacco use Status Tobacco use date assessed 05/26/25 05/26/25 09:19 Patient Tobacco Use Status Never used Tobacco 05/26/25 09:19 e-Cigarette/Vaping Use Never Used 05/26/25 09:19 PHQ-9: PHQ-9 Score PHQ-9: Total score 0 05/26/25 10:01 Thrive Assessment: Date of Thrive Assessment Date Thrive assessed 05/26/25 05/26/25 09:19 Const General: cooperative, healthy appearing, comfortable and no acute distress Orientation/consciousness: patient oriented x3 HENMT Head: Yes normocephalic Ears: hearing grossly normal bilaterally General nose exam: Normal external nose present Eyes General: appearance normal, both eyes and all related structures Conjunctivae: conjunctivae normal Neck Neck: Yes full ROM and Yes no lymphadenopathy Resp Effort & Inspection: normal respiratory effort Auscultation: clear to auscultation bilaterally, no crackles, no rales, no rhonchi and no wheezes Cardio Rate: regular rate Rhythm: regular rhythm Skin General skin exam: no rashes or lesions noted Neuro General: patient oriented x3 Gait exam (Neuro): Normal gait present Extrem General: Yes normal to inspection, Yes full ROM and No edema Psych Affect: normal affect Attitude: cooperative Insight: Good insight present (Psych) Judgement: Good judgement present (Psych) Coding Level of Care Code Est Pt Level 3 (70546) Diagnoses Type 2 diabetes mellitus with other specified complication, without long-term current use of insulin E11.69 Diabetes mellitus complication status: with other specified complication Diabetes mellitus residential insulin use: without residential use Diabetes mellitus type: type 2 Low back pain M54.50 Hypertension I10 Insomnia G47.00 Assessment & Plan Assessment & Plan (1) Diabetes mellitus: Code(s): E11.9 - Type 2 diabetes mellitus without complications Category: Medical Qualifiers: Diabetes mellitus complication status: with other specified complication 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 Although fruits are generally healthy they should be eaten in moderation as they are still high in sugar. Hemoglobin A1c goal of less than 7%. A1c 6.4% at last visit plan to repeat at next visit. (2) Low back pain: Code(s): M54.50 - Low back pain, unspecified Category: Medical Plan: He continues with intermittent low back pain and is working on getting accommodations through his employer. Continue to use Tylenol and ibuprofen as needed (3) Hypertension: Code(s): I10 - Essential (primary) hypertension Category: Medical Plan: The patient will start on losartan 25 mg once daily to manage elevated blood pressure, given the persistently high readings at home and during the visit. Lifestyle modifications, including reducing dietary salt intake, were discussed as adjunctive measures. Follow-up in two months to reassess blood pressure control and medication efficacy. (4) Insomnia: Code(s): G47.00 - Insomnia, unspecified Category: Medical Plan: The patient will be prescribed trazodone 50 mg to be taken as needed for sleep disturbances, with instructions to start with half a tablet to assess tolerance. Potential side effects, including weight gain and exacerbation of depressive symptoms, were discussed. The patient is advised to take the medication 30 minutes before bedtime, especially considering his overnight work schedule. Plan This note was constructed using voice recognition software. While every effort has been made to ensure accuracy and remote control mirror installer, still areas may have been included sometimes these areas may affect the content or meeting of the given symptoms. Total time spent caring for the patient today was 20 minutes. This includes time spent before the visit reviewing the chart, time spent during the visit, and time spent after the visit and documentation. Patient was informed and verbally consented to the use of an ambient scribe for clinic note documentation during this visit. Medications: New losartan 25 mg PO DAILY 90 tabs 0RF losartan 25 mg PO DAILY 90 tabs 0RF trazodone 50 mg PO BEDTIME PRN 90 tabs 0RF sleep
== END 2025-05-26 10:30 | disposition home or self-care (01) ==
DX: E11.69 Type 2 diabetes mellitus with other specified complication (principal); M54.50 Low back pain, unspecified; I10 Essential (primary) hypertension; G47.00 Insomnia, unspecified

== ENCOUNTER → 2025-05-26 09:37 | Outpatient (BNVA) | payer OTHER, SELFPAY | DX: I10 Essential (primary) hypertension (principal); E11.69 Type 2 diabetes mellitus with other specified complication; M54.50 Low back pain, unspecified; G47.00 Insomnia, unspecified | CPT/HCPCS: 99212 ==

== ENCOUNTER 2025-06-23 13:31 | Outpatient (AMB) | payer OTHER, SELFPAY ==
--- OUTSIDE RECORDS SUMMARY | 2024-03-29 09:00 | XMS_ITS ---
Author Organization [facility] Address [address] [place] [address] Care Team Providers Care Cryptographic Clerk Name Role Phone NO, PCP Primary Care Provider [facility], Nursing Unavailable [phone] REASON FOR VISIT phone: Intake Encounters Encounter Location Date Provider Diagnosis [address] [address] 03/29/2024 Nursing [facility] Plan Of Treatment No Information Progress Notes * GUY MARSHADOB:[birth year] (54 yo M)Acc No.[id number]:03/29/2024 Progress Notes Patient: MARSHA DE JESUS Provider: Adelso levy [facility] :1970 A ge:53 Y S ex:Male Date:03/29/2024 Address:[address] [place], [place] [phone] Pcp:PCP NO Subjective: * Chief Complaints: * 1 . phone: Intake. * Medical History: Objective: * Vitals: Assessment: Plan: * Treatment: * Images: Billing Information: * Visit Code: * Procedure Codes: * Electronic signature of Huber jackson [facility] on 06/23/2025 at 04:38 PM EDT Sign off status: Pending * Provider: Adelso levy [facility] Date: 0 03/29/2024 Generated for Roni colón/Milton/eTkadismitting on: 04:38 PM EDT
--- OUTSIDE RECORDS SUMMARY | 2024-06-14 10:00 | XMS_ITS ---
Author Organization [facility] Address [address] [place] [address] Care Team Providers Care Relay Repairer Name Role Phone NO, PCP Primary Care Provider [phone] [facility], Nursing Unavailable [phone] REASON FOR VISIT phone: intake Encounters Encounter Location Date Provider Diagnosis [address] [address] 06/14/2024 Nursing [facility] Plan Of Treatment No Information Progress Notes * GUY MARSHADOB:[birth year] (54 yo M)Acc No.[id number]:06/14/2024 Progress Notes Patient: MRASHA DE JESUS Provider: Adelso levy [facility] :1970 A ge:53 Y S ex:Male Date:06/14/2024 Address:[address] [place], [place] [phone] Pcp:PCP NO Subjective: * Chief Complaints: * 1 . Phone: intake. * Medical History: Objective: * Vitals: Assessment: Plan: * Treatment: * Images: Billing Information: * Visit Code: * Procedure Codes: * Electronic signature of Huber jackson [facility] on 06/23/2025 at 04:39 PM EDT Sign off status: Pending * Provider: Adelso levy [facility] Date: Generated for Roni colón/Milton/eTkadismkrystina on: 04:39 PM EDT
--- NOTE | 2025-06-23 13:37 | A.OFFPC_ITS ---
Vital Signs 06/23/25 13:38 Height 6 ft 1.2 in Weight 205 lb 2 oz BMI 26.9 BP 146/90 H Blood Pressure Location Lt brachial Position Sitting Pulse 84 Pulse Source Pulse Oximeter Temp 97.3 F Temp Source Temporal Artery Scan Pulse Oximetry (%) 99 Oxygen Delivery Method Room Air Intake Visit Reasons: annual exam Intake Note: Patient is here today for a physical. 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 per policy Accompanied by: Self / Same As Patient Allergies No Known Allergies Allergy (Verified 06/23/25 13:53) Medication List - Last Reconciled 06/23/25 by Fanny Bro PA-C acetaminophen (Tylenol) 325 mg PO DAILY PRN blood pressure monitor (Blood Pressure Kit) As directed; to check BP daily losartan 25 mg PO DAILY multivitamin 1 tab PO DAILY trazodone 50 mg PO BEDTIME PRN Tobacco use date assessed: 06/23/25 Dental Screening Dental Screen Date: 05/26/25 HPI annual exam HPI Details 54-year-old male with past medical histo ry of diabetes mellitus, elevated LFTs last seen 05/24 225 coming in for annual exam. At his last visit patient was started on losartan 25 mg for blood pressure control. Presenting with hypertension management and preventative care. The patient has been monitoring blood pressure at home, with readings around 115/75 mmHg, but presented with a reading of 140/98 mmHg in the clinic. Currently on losartan, with a plan to increase the dosage from 25 mg to 50 mg due to elevated readings. PSA: Ordered Vaccinations: declines today Colonoscopy: Cologuard ordered [facility] Medical History Elevated blood pressure reading without diagnosis of hypertension Surgical History No pertinent past surgical history Family History Father No problems noted. Mother No problems noted. Social History Housing: House Alcohol intake: never Patient Tobacco Use Status: Never used Tobacco e-Cigarette/Vaping Use: Never Used Second Hand Smoke Exposure: No service: No Current occupational status: employed Cognitive needs: No Hearing needs: No Vision needs: No Questionnaire Thrive Questionnaire Date Thrive assessed: 05/26/25 I am a: Patient What is your living situation today?: I have a steady place to live Within the past 12 months, did the food you bought not last and you didn't have the money to get more?: Sometimes True Within the past 12 months, did you worry whether your food would run out before you got money to buy more?: Sometimes True Do you have trouble paying for medicines?: I choose not to answer this question Do you have trouble getting transportation to medical appointments?: I choose not to answer this question Do you have trouble paying your heating and electricity bill?: I choose not to answer this question Do you have trouble taking care of your child, family member or friend?: I choose not to answer this question Do you have trouble with day-to-day activities such as bathing, preparing meals, shopping, managing finances, etc.?: No Are you currently unemployed and looking for a job?: No Are you interested in more education?: Yes Please select the resources that you would like help with: Education Currently or been in a relationship where the following occur: I choose not to answer THRIVE Score: 2 KASSANDRA-7 AMB Questionnaire KASSANDRA-7 Date KASSANDRA - 7 assessed: 05/26/25 Source: Developed by Drs. Cristofer Horn, Roro Chen, Elkin Leone and colleagues, with an educational emma from [employer]. Review of Systems Const Denies body aches, Denies fatigue, Denies fever(s), Denies frequent falls, Denies headache(s) and Denies weakness Eyes Reports no additional complaints and Denies change in vision ENT Denies dysphagia, Denies dizziness, Denies facial pain, Denies headache(s), Denies nasal congestion and Denies odynophagia Card Denies chest pain, Denies syncope, Denies irregular heart rhythm, Denies leg edema, Denies lightheadedness and Denies dyspnea Resp Denies cough and Denies dyspnea GI Denies constipation, Denies dysphagia, Denies dyspepsia, Denies diarrhea, Denies nausea, Denies odynophagia and Denies vomiting Denies dysuria, Denies urinary frequency, Denies urinary hesitancy and Denies urinary urgency Musc Denies back pain and Denies myalgias Skin/Breast Reports system reviewed and no additional complaints, except as documented Neuro Denies dizziness, Denies syncope, Denies frequent falls, Denies headache(s) and Denies weakness Psych Reports no additional complaints Endo Denies fatigue Physical exam (Primary Care) Vital Signs: Last Vital Signs Temp 97.3 F 06/23/25 13:38 Pulse 84 06/23/25 13:38 BP 146/90 H 06/23/25 13:38 Pulse Ox 99 06/23/25 13:38 Oxygen Delivery Method Room Air 06/23/25 13:38 BMI result Body Mass Index 26.9 Tobacco/Smoking Status: Tobacco use Status Tobacco use date assessed 06/23/25 06/23/25 13:43 Patient Tobacco Use Status Never used Tobacco 06/23/25 13:43 e-Cigarette/Vaping Use Never Used 06/23/25 13:43 Thrive Assessment: Date of Thrive Assessment Date Thrive assessed 05/26/25 06/23/25 13:43 Currently or been in a relationship where the following occur: I choose not to a nswer Const General: cooperative, healthy appearing, comfortable and no acute distress Orientation/consciousness: patient oriented x3 HENMT Head: Yes normocephalic Ears: hearing grossly normal bilaterally, external ears normal, TM's normal bilaterally and EAC's normal General nose exam: Normal external nose present Face and sinus: Yes normal facial exam and Yes sinuses nontender Mouth: Normal oral and palatal mucosa present and tongue normal Throat: Yes posterior oropharynx normal Eyes General: appearance normal, both eyes and all related structures Conjunctivae: conjunctivae normal Pupils: Equal, round and reactive pupils present EOM: EOMs intact bilaterally and No Nystagmus present Neck Neck: Yes normal visual inspection, Yes full ROM and Yes no lymphadenopathy Chest Chest palpation & inspection: normal inspection of the chest Resp Effort & Inspection: normal respiratory effort Auscultation: clear to auscultation bilaterally, no crackles, no rales, no rhonchi, no wheezes and breath sounds present Cardio Rate: regular rate Rhythm: regular rhythm Peripheral pulses: radial pulses present and dorsalis pedis present GI Inspection: Yes normal to inspection and No Abdominal wall edema Palpation (GI): Soft to palpation, not firm and nontender Auscultation: normal bowel sounds Rectal Exam - Male: Yes deferred General: Yes no CVA tenderness Back/Spine/Pelvis Back: no CVA tenderness Skin General skin exam: no rashes or lesions noted Neuro General: patient oriented x3 Cranial nerves: Yes Equal, round and reactive pupils present, Yes Midline tongue present, Yes Ability to bilaterally elevate shoulders present and No Nystagmus present Gait exam (Neuro): Normal gait present Extrem General: Yes normal to inspection, Yes full ROM, No no pedal edema and No edema Psych Speech and movement: Normal speech and movement present Affect: normal affect Insight: Good insight present (Psych) Judgement: Good judgement present (Psych) Coding Level of Care Code Est Pt Prev Care 40-64y(89112) Diagnoses Annual physical exam Z00.00 Hypertension I10 Type 2 diabetes mellitus with other specified complication, without long-term current use of insulin E11.69 Diabetes mellitus complication status: with other specified complication 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 Blood work is ordered today as well. Healthy diet and regular exercise is encouraged. (2) Hypertension: Code(s): I10 - Essential (primary) hypertension Category: Medical Plan: Blood pressure elevated in the office today and continues to be elevated at home as well. Plan to increase the Losartan to 50 mg and follow up in 2 months. (3) Diabetes mellitus: Code(s): E11.9 - Type 2 diabetes mellitus without complications Category: Medical Qualifiers: Diabetes mellitus complication status: with other specified complication Diabetes mellitus long-term insulin use: without remote computer terminal operator use Diabetes mellitus type: type 2 Qualified Code(s): E11.69 - Type 2 diabetes mellitus with other specified complication Plan: Decrease the amount of carbohydrates such as pasta, bread, rice, and potatoes and limit the amount of sweets. Although fruits are generally healthy they should be eaten in moderation as they are still high in sugar. (4) Elevated LFTs: Code(s): R79.89 - Other specified abnormal findings of blood chemistry Category: Medical Plan: Healthy diet and regular exercise is encouraged. Ordered for updated blood work. (5) Insomnia: Code(s): G47.00 - Insomnia, unspecified Category: Medical Plan: Continue to use Trazodone as needed. Plan This note was constructed using voice recognition software. While every effort has been made to ensure accuracy and gas station service attendant, still areas may have been included sometimes these areas may affect the content or meeting of the given symptoms. Total time spent caring for the patient today was 30 minutes. This includes time spent before the visit reviewing the chart, time spent during the visit, and time spent after the visit and documentation. Patient was informed and verbally consented to the use of an ambient scribe for clinic note documentation during this visit. Orders: Orders PSA, Ultra Sensitive Today Z12.5 - Encounter for screening for malignant neoplasm of prostate Comprehensive Met. Panel Today R79.89 - Other specified abnormal findings of blood chemistry, Z00.00 - Encounter for general adult medical examination without abnormal findings Hemoglobin A1c Today E11.65 - Type 2 diabetes mellitus with hyperglycemia, E11.69 - Type 2 diabetes mellitus with other specified complication Lipid Panel Today Z13.220 - Encounter for screening for lipoid disorders Complete Blood Count Auto Diff Today E11.69 - Type 2 diabetes mellitus with other specified complication, Z13.0 - Encounter for screening for diseases of the blood and blood-forming organs and certain disorders involving the immune mechanism Vitamin B12 and Folate Today Z13.21 - Encounter for screening for nutritional disorder Vitamin D 25-OH Total Today Z13.21 - Encounter for screening for nutritional disorder TSH reflex Free T4 Today Z13.29 - Encounter for screening for other suspected endocrine disorder Microalbumin, Random (w Creat) Today E11.69 - Type 2 diabetes mellitus with other specified complication, E11.9 - Type 2 diabetes mellitus without complications Referrals Cologuard Test E11.69 - Type 2 diabetes mellitus with other specified comp lication, Z12.11 - Encounter for screening for malignant neoplasm of colon, Z12.12 - Encounter for screening for malignant neoplasm of rectum Medications: New losartan 50 mg PO DAILY 90 tabs 0RF Discontinued losartan Discontinued Reason: Patient no longer taking 25 mg PO DAILY 90 tabs 0RF
[2025-06-23 13:38] VITALS: BP 146/90; PULSE 84; TEMP 36.3; O2SAT 99; BMI 26.9
--- OUTSIDE RECORDS SUMMARY | 2025-06-23 16:39 | XMS_ITS | Patient Health Record ---
Author Organization [facility] Address [address] [place] [address] Care Team Providers Care Pipeline Operator Name Role Phone NO, PCP Primary Care Provider [facility], Nursing Unavailable [phone] Reason For Referral No Information Plan Of Treatment No Information Insurance Providers Payer Name Payer Address Payer Phone Subscriber Number Group Number Insured Name Patient Relationship to Insured Coverage Start Date Coverage End Date [place] Medicaid Limited [address] [place], [place] [id number] MARSHA HOLMAN Self - patient is the insured 4
== END 2025-06-23 14:12 | disposition home or self-care (01) ==
LOC: HO.HMCH 13:32
DX: Z00.00 Encounter for general adult medical examination without abnormal findings (principal); I10 Essential (primary) hypertension; E11.69 Type 2 diabetes mellitus with other specified complication; R79.89 Other specified abnormal findings of blood chemistry; G47.00 Insomnia, unspecified

== ENCOUNTER → 2025-06-23 13:31 | Outpatient (BNVA) | payer OTHER, SELFPAY | DX: Z00.00 Encounter for general adult medical examination without abnormal findings (principal); I10 Essential (primary) hypertension; E11.69 Type 2 diabetes mellitus with other specified complication; G47.00 Insomnia, unspecified; R79.89 Other specified abnormal findings of blood chemistry; Z79.899 Other long term (current) drug therapy | CPT/HCPCS: 99396 ==